=== PATIENT | female | born 1970 | race Caucasian/White ===

== ENCOUNTER 2017-05-17 09:45 | Emergency (ER) | payer OTHER ==
[~2017-05-17] VITALS: Ht 167.6 cm; Wt 67.3 kg
[2017-05-17 10:00] VITALS: BP 152/76; PULSE 83; RESP 16; TEMP 97.8; O2SAT 95
--- NOTE | 2017-05-17 10:24 | PD ---
HPI Chief Complaint: Musculoskeletal Complaint Time Seen by Provider: 10:18 Travel History International Travel<30 days: No Contact w/Intl Traveler<30days: No Traveled to known affect area: No History of Present Illness HPI 47-year-old female presents to the emergency room for evaluation of left-sided rib pain after mechanical fall 2 days ago. Patient states he was stepping out of her bathtub when she slipped and fell to the left landing with her left rib cage on the side of the bathtub. She denies hitting her head or loss of consciousness. Denies any other injuries. Her came in and helped her up. She has been taking ibuprofen and her 's muscle relaxer without any relief in symptoms. Pain is worsened with coughing and deep breathing. States she has had a nonproductive cough for the past 2 weeks that is lingering after she had an upper respiratory infection. No fevers. PFSH Past Medical History Cardiovascular Problems: Yes (htn on meds) Respiratory: Yes (asthma) ?: Not Past Surgical History Hysterectomy: Yes Social History Tobacco Use: Yes Allergies-Medications (Allergen,Severity, Reaction): Coded Allergies: Iodinated Contrast- Oral and IV Dye (Verified Allergy, Intermediate, RASH , 05/17/17) Reported Meds & Prescriptions Reported Meds & Active Scripts Active Lidocaine Patch 12 HR (Lidocaine) 5 % Patch 1 Patch TOPICAL DAILY PRN Remove patch after 12 hours Tylenol (Acetaminophen) 325 Mg Tab 650 Mg PO Q6H PRN Review of Systems Except as stated in HPI: all other systems reviewed are Neg Physical Exam Narrative GENERAL: Well-nourished, well-developed female no acute distress. Afebrile. Ambulatory. SKIN: Focused skin assessment warm/dry. HEAD: Normocephalic. EYES: No scleral icterus. No injection or drainage. NECK: Supple, trachea midline. No JVD or lymphadenopathy. CARDIOVASCULAR: Regular rate and rhythm without murmurs, gallops, or rubs. RESPIRATORY: Breath sounds equal bilaterally. No accessory muscle use. No crackles, rales, wheezes, or rhonchi. CHEST: Nontender throughout without deformity or crepitus. No retractions or use of accessory muscles. Data Data Last Documented VS Vital Signs Date Time Temp Pulse Resp B/P (MAP) Pulse Ox O2 Delivery O2 Flow Rate FiO2 05/17/17 10:00 97.8 83 16 152/76 (101) 95 Orders Orders Ribs, Uni (W/Exp Cxr-Min 3vw) (05/17/17 ) Ed Discharge Order (05/17/17 11:07) Resp Incentive Spirometry (05/17/17 ) MDM Medical Decision Making Medical Screen Exam Complete: Yes Emergency Medical Condition: Yes Medical Record Reviewed: Yes Differential Diagnosis Contusion, fracture, sprain, strain Narrative Course 47-year-old female presents to the emergency room for evaluation of left-sided rib pain for the past 2 days after mechanical trip and fall. Patient slipped while coming out of her tub and landed on her left anterior rib. Denies any other injuries. Pain is exacerbated with palpation and deep breathing. Physical exam is reassuring. There is no bruising, crepitus, or obvious deformity. Lung sounds clear and equal bilaterally. Chest x-ray is negative for acute abnormality. Likely contusion or nondisplaced rib fracture. Patient given incentive spirometer in ED. Discharge with prescriptions for Tylenol and lidocaine patches. Told to follow-up with a primary care physician or return for worsening symptoms. She understands and agrees to plan. Diagnosis Primary Impression: Contusion of rib on left side Qualified Codes: S20.212A - Contusion of left front wall of thorax, initial encounter Referrals: Primary Care Physician Additional Instructions: Rest and drink plenty of fluids. Take ibuprofen with food as directed, as needed for pain. Apply ice to the affected area for 20 minutes at a time, as needed for pain and swelling. Follow-up with a primary care physician. Return to the emergency room for worsening symptoms. Scripts Lidocaine Patch 12 HR (Lidocaine Patch 12 HR) 5 % Patch 1 PATCH TOPICAL DAILY Y for PAIN, #1 BOX 0 Refills Remove patch after 12 hours Prov: Neisha Magana MD 05/17/17 Acetaminophen (Tylenol) 325 Mg Tab 650 MG PO Q6H Y for PAIN SCALE 1 TO 10, #20 TAB 0 Refills Prov: Neisha Magana MD 05/17/17 Disposition: 01 DISCHARGE HOME Condition: Stable Lori Leon May 17, 2017 10:24
--- NOTE | 2017-05-17 10:48 | RADRPT ---
EXAM DATE/TIME: 05/17/2017 10:29 [facility] COMPARISON: No previous studies available for comparison. INDICATIONS : Left anterior rib pain post fall onto side of tub 2 days ago. MEDICAL HISTORY : Hypertension. Asthma. SURGICAL HISTORY : Hysterectomy. ENCOUNTER: Initial ACUITY: 2 days PAIN SCORE: 10/10 LOCATION: Left anterior ribs FINDINGS: Multiple views of the left ribs were performed. There is no evidence of displaced fracture. No dest ructive lesions or areas of periosteal thickening are seen. Expiratory view of the chest is negative for pneumothorax. The mediastinal structures are midline. CONCLUSION: Negative for displaced rib fracture. No pneumothorax. Jaime Astudillo MD FACR on May 17, 2017 at 10:45 Board Certified Radiologist. This report was verified electronically.
[2017-05-17] MEDS ORDERED: LIDO1PAD52 TOPICAL (11:18)
[2017-05-17] MEDS ORDERED: TYLE325T PO (11:18)
== END 2017-05-17 11:27 | disposition home or self-care (01) ==
LOC: PHED 09:45 → PHEFT 11:27
DX: S20.212A Contusion of left front wall of thorax, initial encounter (principal); J45.909 Unspecified asthma, uncomplicated; I10 Essential (primary) hypertension; Z72.0 Tobacco use; Z91.041 Radiographic dye allergy status; W18.2XXA Fall in (into) shower or empty bathtub, initial encounter
CPT/HCPCS: 71101; 94150; 99283